=== PATIENT | female | born 1970 | race Asian ===

== ENCOUNTER → 2024-01-06 | Outpatient (CLI) | payer OTHER ==
[2024-01-06 12:06] LABS: APPEARANCE, URINE CLEAR (CLEAR); BACTERIA, URINE AUTO NEGATIVE (NEGATIVE); BILIRUBIN, URINE AUTO NEGATIVE (NEGATIVE); BLOOD, URINE BLOOD NEGATIVE (NEGATIVE); COLOR, URINE STRAW (YELLOW); GLUCOSE, URINE (UA) AUTO NEGATIVE (NEGATIVE); KETONE, URINE AUTO NEGATIVE (NEGATIVE); LEUKOCYTE ESTERASE, URINE AUTO NEGATIVE (NEGATIVE); NITRITE, URINE AUTO NEGATIVE (NEGATIVE); PROTEIN, URINE AUTO NEGATIVE (NEGATIVE); RBC, URINE AUTO 0 /HPF (0-3); SPECIFIC GRAVITY URINE AUTO 1.005 (1.002-1.035); SQUAMOUS EPITHELIAL CELL UR AU 7 /HPF (0-6); UROBILINOGEN, URINE AUTO 0.2 mg/dL (0.0-2.0); WBC, URINE AUTO 1 /HPF (0-3)
[2024-01-06 12:25] LABS: CREATININE, URINE 31.1 MG/DL; MALB URINE SIEMENS < 3.0 MG/L; MAU/CREAT RATIO 9.6 MCG/MG (0.0-30.0)
[2024-01-06 18:22] LABS: BASO % 0.4 % (0.0-1.0); EOS # 0.2 10^3/uL (0.0-0.5); EOS % 3.2 % (0.0-3.0); HEMATOCRIT 40.3 % (36.0-47.0); HEMOGLOBIN 12.6 g/dl (12.0-15.5); LYMPH # 2.7 10^3/uL (1.5-5.0); LYMPH % 37.9 % (24.0-44.0); MEAN CORPUSCULAR HEMOGLOBIN 27.5 pg (27.0-33.0); MEAN CORPUSCULAR HGB CONC 31.3 g/dl (32.0-36.5); MONO # 0.3 10^3/uL (0.0-0.8); MONO % 4.3 % (2.0-8.0); NEUTROPHILS # 3.8 10^3/uL (1.5-8.5); NEUTROPHILS % 53.8 % (36.0-66.0); PLATELET COUNT, AUTOMATED 257 10^3/uL (150-450); RED BLOOD COUNT 4.58 10^6/uL (4.00-5.40); WHITE BLOOD COUNT 7.1 10^3/uL (4.0-10.0)
[2024-01-06 18:39] LABS: ALBUMIN 3.6 G/DL (3.2-5.2); ALKALINE PHOSPHATASE 121 U/L (46-116); ALT/SGPT 11 U/L (7.0-40); AST/SGOT 11 U/L (<34); BILIRUBIN,TOTAL 0.3 MG/DL (0.3-1.2); BLOOD UREA NITROGEN 11 MG/DL (9-23); CALCIUM LEVEL 9.3 MG/DL (8.5-10.1); CARBON DIOXIDE LEVEL 25 MMOL/L (20-31); CHLORIDE LEVEL 107 MMOL/L (98-107); CHOLESTEROL LEVEL 238 MG/DL (<200); CHOLESTEROL RISK RATIO 4.57 (<5); CREATININE FOR GFR 0.72 MG/DL (0.55-1.30); GLOMERULAR FILTRATION RATE > 60.0 (>51); GLUCOSE, FASTING 92 MG/DL (60-100); LDL CHOLESTEROL 137.8 MG/DL (<100); MAGNESIUM LEVEL 1.9 MG/DL (1.8-2.4); POTASSIUM SERUM 4.8 MMOL/L (3.5-5.1); SODIUM LEVEL 139 MMOL/L (136-145); TOTAL PROTEIN 7.3 G/DL (5.7-8.2); TRIGLYCERIDES LEVEL 241 MG/DL (<150)
[2024-01-06 18:43] LABS: VITAMIN B12 LEVEL 200 PG/ML (211-911)
[2024-01-06 18:45] LABS: FOLATE 5.5 NG/ML (>5.4); THYROID STIMULATING HORMONE 4.358 uIU/ML (0.55-4.78)
[2024-01-06 18:46] LABS: TOTAL 25(OH) VITAMIN D 12.3 NG/ML (20.0-100.0)
[2024-01-06 19:09] LABS: HIV 1&2 SCREEN NEGATIVE (NEGATIVE)
[2024-01-06 19:16] LABS: HEPATITIS C VIRUS ABY INDEX < 0.02 INDEX (<0.8)
[2024-01-06 19:21] LABS: HEMOGLOBIN A1c 5.6 % (4.0-6.0)
== END ==
LOC: M RAD 10:36
PROVIDERS: ATTEND Physician Assistant
DX: I10 Essential (primary) hypertension (principal)

== ENCOUNTER 2024-03-15 19:58 | Emergency (ER) | payer OTHER ==
[~2024-03-15] VITALS: Ht 160 cm; Wt 93.1 kg
[~2024-03-15 19:58] MED LIST: CYAN500T14 PO; OLME20TA50 PO; OMEP1CAP73 PO; PROP20TA72 PO; VITA100093 PO
[2024-03-15] MEDS: ASPIRIN 81MG CHEW TABLET PO ONE (20:53)
[2024-03-15 20:57] LABS: HEMATOCRIT 36.6 % (36.0-47.0); HEMOGLOBIN 11.5 g/dl (12.0-15.5); MEAN CORPUSCULAR HEMOGLOBIN 27.3 pg (27.0-33.0); MEAN CORPUSCULAR HGB CONC 31.4 g/dl (32.0-36.5); MEAN CORPUSCULAR VOLUME 86.7 fl (80.0-96.0); PLATELET COUNT, AUTOMATED 234 10^3/uL (150-450); RED BLOOD COUNT 4.22 10^6/uL (4.00-5.40); WHITE BLOOD COUNT 9.3 10^3/uL (4.0-10.0)
[2024-03-15 21:09] LABS: INR 0.97; PARTIAL THROMBOPLASTIN TIME 32.2 SECONDS (24.8-34.2); PROTHROMBIN TIME 12.6 SECONDS (12.5-14.5)
[2024-03-15 21:13] LABS: ATYPICAL LYMPH 1 % (0-5); EOSINOPHILS 5 % (0-3); LYMPHOCYTES 52 % (16-44); MONOCYTES 2 % (0-5); NEUTROPHILS 40 % (28-66)
[2024-03-15 21:14] LABS: CK-MB VALUE MASS < 1.0 NG/ML (<3.6); PLATELET ESTIMATE NORMAL (NORMAL)
[2024-03-15 21:16] LABS: ALBUMIN 3.2 G/DL (3.2-5.2); ALKALINE PHOSPHATASE 113 U/L (46-116); ALT/SGPT 10 U/L (7.0-40); AST/SGOT 11 U/L (<34); BILIRUBIN,DIRECT < 0.1 MG/DL (<0.4); BILIRUBIN,TOTAL 0.2 MG/DL (0.3-1.2); BLOOD UREA NITROGEN 17 MG/DL (9-23); CALCIUM LEVEL 9.4 MG/DL (8.5-10.1); CARBON DIOXIDE LEVEL 25 MMOL/L (20-31); CHLORIDE LEVEL 107 MMOL/L (98-107); CREATININE FOR GFR 0.73 MG/DL (0.55-1.30); GLOMERULAR FILTRATION RATE > 60.0 (>51); GLUCOSE, FASTING 100 MG/DL (60-100); MAGNESIUM LEVEL 1.8 MG/DL (1.8-2.4); POTASSIUM SERUM 4.1 MMOL/L (3.5-5.1); SODIUM LEVEL 141 MMOL/L (136-145); TOTAL PROTEIN 7.1 G/DL (5.7-8.2)
[2024-03-15 21:18] LABS: THYROID STIMULATING HORMONE 5.803 uIU/ML (0.55-4.78)
[2024-03-15 21:22] LABS: CPK CREATINE PHOSPHOKINASE 54 U/L (34-145); MB/CK RELATIVE INDEX 1.85 (< OR =4)
[2024-03-15] MEDS ORDERED: ISOVUE-370 76% 100ML VIAL As Ordered ONE (22:02)
[2024-03-15 23:12] LABS: CK-MB VALUE MASS < 1.0 NG/ML (<3.6)
[2024-03-15 23:15] LABS: CPK CREATINE PHOSPHOKINASE 57 U/L (34-145); MB/CK RELATIVE INDEX 1.75 (< OR =4)
[2024-03-16] MEDS ORDERED: AMLO25TA PO (00:07)
[2024-03-16] MEDS ORDERED: ASPI81TA26 PO (00:07)
[2024-03-16 00:25] VITALS: BP 129/64; TEMP 98.2; O2SAT 99
== END 2024-03-16 00:39 | disposition home or self-care (01) ==
LOC: M ED 19:58
DX: R07.9 Chest pain, unspecified (principal); K21.9 Gastro-esophageal reflux disease without esophagitis; E78.5 Hyperlipidemia, unspecified; R94.31 Abnormal electrocardiogram [ECG] [EKG]; Z79.1 Long term (current) use of non-steroidal anti-inflammatories (NSAID); Z79.899 Other long term (current) drug therapy
CPT/HCPCS: 36415; 71045; 71275; 80048; 80076; 82550; 82553; 83735; 84439; 84443; 85025; 85610; 85730; 93005; 93041; 93970; 94760; 99285; Q9967

== ENCOUNTER 2024-03-28 10:36 | Day surgery (SDC) | payer OTHER ==
[~2024-03-28] VITALS: Ht 160 cm; Wt 93.3 kg
[~2024-03-28 10:36] MED LIST changes: +AMLO25TA PO; +ASPI81TA26 PO
[2024-03-28] MEDS: NS 1,000 ML IV ONE (12:03)
[2024-03-28] MEDS ORDERED: propofoL 200 MG/20 ML VIAL As Ordered ONE (13:34)
[2024-03-28] MEDS ORDERED: LIDOCAINE 2% 100MG/5ML SDV (FOR ANES.) As Ordered ONE (13:34)
[2024-03-28 14:03] VITALS: BP 112/65; TEMP 96.6; O2SAT 99
== END 2024-03-28 14:07 | disposition home or self-care (01) ==
LOC: M OPP 10:36
PROVIDERS: ATTEND Surgery
DX: Z12.11 Encounter for screening for malignant neoplasm of colon (principal); K21.9 Gastro-esophageal reflux disease without esophagitis; R00.2 Palpitations; I10 Essential (primary) hypertension; Z79.899 Other long term (current) drug therapy

== ENCOUNTER → 2024-04-11 | Outpatient (CLI) | payer OTHER ==
[2024-04-11 18:07] LABS: BASO % 0.3 % (0.0-1.0); EOS # 0.7 10^3/uL (0.0-0.5); HEMATOCRIT 37.2 % (36.0-47.0); HEMOGLOBIN 11.9 g/dl (12.0-15.5); LYMPH # 2.7 10^3/uL (1.5-5.0); LYMPH % 30.1 % (24.0-44.0); MEAN CORPUSCULAR VOLUME 84.4 fl (80.0-96.0); MONO # 0.6 10^3/uL (0.0-0.8); MONO % 6.2 % (2.0-8.0); NEUTROPHILS # 4.9 10^3/uL (1.5-8.5); PLATELET COUNT, AUTOMATED 279 10^3/uL (150-450); RED BLOOD COUNT 4.41 10^6/uL (4.00-5.40); WHITE BLOOD COUNT 8.9 10^3/uL (4.0-10.0)
[2024-04-11 18:19] LABS: HEMOGLOBIN A1c 5.8 % (4.0-6.0)
[2024-04-11 18:31] LABS: ALBUMIN 3.6 G/DL (3.2-5.2); ALKALINE PHOSPHATASE 125 U/L (46-116); ALT/SGPT 11 U/L (7.0-40); AST/SGOT 10 U/L (<34); BILIRUBIN,TOTAL 0.2 MG/DL (0.3-1.2); BLOOD UREA NITROGEN 15 MG/DL (9-23); CALCIUM LEVEL 9.6 MG/DL (8.5-10.1); CARBON DIOXIDE LEVEL 25 MMOL/L (20-31); CHLORIDE LEVEL 110 MMOL/L (98-107); CREATININE FOR GFR 0.93 MG/DL (0.55-1.30); GLOMERULAR FILTRATION RATE > 60.0 (>51); GLUCOSE, FASTING 89 MG/DL (60-100); POTASSIUM SERUM 3.9 MMOL/L (3.5-5.1); SODIUM LEVEL 141 MMOL/L (136-145); TOTAL PROTEIN 7.2 G/DL (5.7-8.2)
[2024-04-11 18:32] LABS: FREE T4 0.87 NG/DL (0.89-1.76); RHEUMATOID FACTOR QUANT 9.8 IU/ML (<14); THYROID STIMULATING HORMONE 2.951 uIU/ML (0.55-4.78)
[2024-04-11 18:33] LABS: FOLATE 7.4 NG/ML (>5.4); VITAMIN B12 LEVEL 672 PG/ML (211-911)
[2024-04-11 19:14] LABS: ERYTHROCYTE SEDIMENTATION RATE 66 mm/hr (0-30)
== END ==
LOC: M LAB 17:13
PROVIDERS: ATTEND Psychiatry & Neurology Neurology
DX: E11.9 Type 2 diabetes mellitus without complications (principal); E53.8 Deficiency of other specified B group vitamins

== ENCOUNTER → 2024-05-10 | Outpatient (CLI) | payer OTHER, SELFPAY | LOC: M SOG 07:57 | PROVIDERS: ATTEND Physician Assistant | DX: M25.512 Pain in left shoulder (principal) ==

== ENCOUNTER → 2024-05-24 | Outpatient (CLI) | payer OTHER | LOC: M SLEEP HO 12:18 | PROVIDERS: ATTEND Physician Assistant | DX: R40.0 Somnolence (principal) ==

== ENCOUNTER → 2024-08-10 | Outpatient (CLI) | payer OTHER ==
[2024-08-13 15:52] LABS: ANA SCREEN, IFA NEGATIVE (NEGATIVE)
== END ==
LOC: M LAB 13:35
PROVIDERS: ATTEND Psychiatry & Neurology Neurology
DX: R51.9 Headache, unspecified (principal)

== ENCOUNTER → 2024-10-10 | Outpatient (REF) | payer OTHER ==
[2024-10-10 19:20] LABS: C REACTIVE PROTEIN QUANTITATIV 3.1 MG/DL (<1.0)
[2024-10-10 19:23] LABS: RHEUMATOID FACTOR QUANT 9.3 IU/ML (<14)
== END ==
LOC: M LAB REF 16:44
PROVIDERS: ATTEND Physician Assistant
DX: M25.50 Pain in unspecified joint (principal)

== ENCOUNTER → 2024-12-18 | Outpatient (REF) | payer OTHER ==
[2024-12-18 16:55] LABS: BASO % 0.3 % (0.0-1.0); EOS # 0.3 10^3/uL (0.0-0.5); EOS % 2.7 % (0.0-3.0); HEMATOCRIT 36.6 % (36.0-47.0); HEMOGLOBIN 11.2 g/dl (12.0-15.5); LYMPH # 2.1 10^3/uL (1.5-5.0); MEAN CORPUSCULAR HEMOGLOBIN 26.4 pg (27.0-33.0); MEAN CORPUSCULAR HGB CONC 30.6 g/dl (32.0-36.5); MEAN CORPUSCULAR VOLUME 86.1 fl (80.0-96.0); MONO # 0.4 10^3/uL (0.0-0.8); MONO % 4.2 % (2.0-8.0); NEUTROPHILS # 7.1 10^3/uL (1.5-8.5); NEUTROPHILS % 70.3 % (36.0-66.0); PLATELET COUNT, AUTOMATED 248 10^3/uL (150-450); RED BLOOD COUNT 4.25 10^6/uL (4.00-5.40); WHITE BLOOD COUNT 10.1 10^3/uL (4.0-10.0)
[2024-12-18 16:59] LABS: ALBUMIN 3.5 G/DL (3.2-5.2); ALKALINE PHOSPHATASE 111 U/L (35-104); ALT/SGPT 13 U/L (7.0-40); AST/SGOT 11 U/L (<34); BILIRUBIN,TOTAL 0.2 MG/DL (0.3-1.2); BLOOD UREA NITROGEN 18 MG/DL (9-23); CALCIUM LEVEL 9.7 MG/DL (8.5-10.1); CARBON DIOXIDE LEVEL 25 MMOL/L (20-31); CHLORIDE LEVEL 105 MMOL/L (98-107); CREATININE FOR GFR 0.95 MG/DL (0.55-1.30); GLOMERULAR FILTRATION RATE > 60.0 (>51); GLUCOSE, FASTING 107 MG/DL (60-100); POTASSIUM SERUM 3.6 MMOL/L (3.5-5.1); SODIUM LEVEL 142 MMOL/L (136-145); TOTAL PROTEIN 7.4 G/DL (5.7-8.2)
[2024-12-18 17:27] LABS: CREATININE, URINE 73.5 MG/DL; MALB URINE SIEMENS < 3.0 MG/L
== END ==
LOC: M LAB REF 15:57
PROVIDERS: ATTEND Physician Assistant
DX: Z79.891 Long term (current) use of opiate analgesic (principal); I10 Essential (primary) hypertension

== ENCOUNTER → 2025-04-18 | Outpatient (CLI) | payer OTHER ==
[2025-04-18 17:35] LABS: BASO % 0.3 % (0.0-1.0); EOS # 0.3 10^3/uL (0.0-0.5); EOS % 4.1 % (0.0-3.0); HEMATOCRIT 33.1 % (36.0-47.0); HEMOGLOBIN 10.1 g/dl (12.0-15.5); MEAN CORPUSCULAR HGB CONC 30.5 g/dl (32.0-36.5); MEAN CORPUSCULAR VOLUME 85.1 fl (80.0-96.0); MONO # 0.5 10^3/uL (0.0-0.8); MONO % 6.3 % (2.0-8.0); NEUTROPHILS # 3.8 10^3/uL (1.5-8.5); NEUTROPHILS % 49.9 % (36.0-66.0); PLATELET COUNT, AUTOMATED 251 10^3/uL (150-450); RED BLOOD COUNT 3.89 10^6/uL (4.00-5.40); WHITE BLOOD COUNT 7.6 10^3/uL (4.0-10.0)
[2025-04-18 17:43] LABS: ERYTHROCYTE SEDIMENTATION RATE 60 mm/hr (0-30)
[2025-04-18 18:07] LABS: C REACTIVE PROTEIN QUANTITATIV 1.45 MG/DL (<1.0); CALCIUM LEVEL 9.2 MG/DL (8.5-10.1); CREATININE FOR GFR 1.12 MG/DL (0.55-1.30); GLOMERULAR FILTRATION RATE 58.4 (>51); POTASSIUM SERUM 3.6 MMOL/L (3.5-5.1)
== END ==
LOC: M LAB 16:57
PROVIDERS: ATTEND Physician Assistant
DX: R21 Rash and other nonspecific skin eruption (principal)

== ENCOUNTER → 2025-06-12 | Outpatient (CLI) | payer OTHER ==
[2025-06-12 12:38] LABS: BASO # 0.0 10^3/uL (0.0-0.2); BASO % 0.3 % (0.0-1.0); EOS # 0.2 10^3/uL (0.0-0.5); EOS % 3.1 % (0.0-3.0); LYMPH # 2.4 10^3/uL (1.5-5.0); LYMPH % 36.7 % (24.0-44.0); MONO # 0.4 10^3/uL (0.0-0.8); MONO % 6.2 % (2.0-8.0); NEUTROPHILS # 3.4 10^3/uL (1.5-8.5); NEUTROPHILS % 53.4 % (36.0-66.0); PLATELET COUNT, AUTOMATED 235 10^3/uL (150-450)
[2025-06-12 12:41] LABS: ESTIMATED AVERAGE GLUCOSE 123.0 MG/DL (60-110)
[2025-06-12 12:43] LABS: ERYTHROCYTE SEDIMENTATION RATE 71 mm/hr (0-30)
[2025-06-12 12:47] LABS: ALT/SGPT 17.0 U/L (7.0-40); AST/SGOT 18.0 U/L (<34); CALCIUM LEVEL 9.2 MG/DL (8.5-10.1); CARBON DIOXIDE LEVEL 26.0 MMOL/L (20-31); CHLORIDE LEVEL 103.0 MMOL/L (98-107); CREATININE FOR GFR 0.82 MG/DL (0.55-1.30); FREE T4 0.84 NG/DL (0.89-1.76); GLOMERULAR FILTRATION RATE 85.0 (>51); POTASSIUM SERUM 3.9 MMOL/L (3.5-5.1); SODIUM LEVEL 141.0 MMOL/L (136-145)
[2025-06-12 12:48] LABS: THYROXINE (T4) 6.4 UG/DL (4.5-10.9)
[2025-06-12 12:49] LABS: RHEUMATOID FACTOR QUANT 5.7 IU/ML (<14); VITAMIN B12 LEVEL 512.0 PG/ML (211-911)
[2025-06-12 12:51] LABS: T UPTAKE 26.0 % (22.5-37.0)
[2025-06-13 07:33] LABS: T P ELECTROPHORESIS SO 6.7 g/dL (6.1-8.1)
== END ==
LOC: M LAB 11:17
PROVIDERS: ATTEND Psychiatry & Neurology Neurology
DX: E11.9 Type 2 diabetes mellitus without complications (principal); E07.9 Disorder of thyroid, unspecified; R19.7 Diarrhea, unspecified; E53.8 Deficiency of other specified B group vitamins; R20.0 Anesthesia of skin

== ENCOUNTER 2025-07-03 19:51 | Emergency (ER) | payer OTHER ==
[~2025-07-03] VITALS: Ht 160 cm; Wt 102.0 kg
[2025-07-03] MEDS ORDERED: NEUR300C PO (23:41)
[2025-07-03] MEDS: GABAPENTIN 300 MG CAP PO ONE (23:44)
[2025-07-03 23:45] VITALS: BP 108/65; TEMP 97.5; O2SAT 99
== END 2025-07-03 23:48 | disposition home or self-care (01) ==
LOC: M ED 19:51
DX: G62.89 Other specified polyneuropathies (principal); G47.33 Obstructive sleep apnea (adult) (pediatric); Z79.1 Long term (current) use of non-steroidal anti-inflammatories (NSAID); Z79.899 Other long term (current) drug therapy

== ENCOUNTER → 2025-07-25 | Outpatient (CLI) | payer OTHER ==
[~2025-07-25] MED LIST changes: +NEUR300C PO
== END ==
LOC: M PLAIMG 09:22
PROVIDERS: ATTEND Physician Assistant
DX: M79.651 Pain in right thigh (principal)

== ENCOUNTER → 2025-08-08 | Outpatient (REF) | payer OTHER ==
[2025-08-08 15:58] LABS: CHOLESTEROL LEVEL 219.0 MG/DL (<200); CHOLESTEROL RISK RATIO 4.38 (<5); IRON (FE) 44.0 UG/DL (50-170); LDL CHOLESTEROL 105.0 MG/DL (<100); NON-HDL-C 169.0 MG/DL; PERCENT SATURATION 12.6 % (13.2-45.0); TRIGLYCERIDES LEVEL 320.0 MG/DL (<150)
[2025-08-08 16:01] LABS: TOTAL 25(OH) VITAMIN D 31.3 NG/ML (20.0-100.0)
== END ==
LOC: M LAB REF 12:16
PROVIDERS: ATTEND Physician Assistant
DX: D50.9 Iron deficiency anemia, unspecified (principal); I10 Essential (primary) hypertension; E55.9 Vitamin D deficiency, unspecified

== ENCOUNTER → 2025-08-08 | Outpatient (REF) | payer OTHER ==
[2025-08-08 12:50] LABS: APPEARANCE, URINE HAZY (CLEAR); BACTERIA, URINE AUTO 1+ (NEGATIVE); BILIRUBIN, URINE AUTO NEGATIVE (NEGATIVE); BLOOD, URINE BLOOD NEGATIVE (NEGATIVE); GLUCOSE, URINE (UA) AUTO NEGATIVE (NEGATIVE); KETONE, URINE AUTO NEGATIVE (NEGATIVE); LEUKOCYTE ESTERASE, URINE AUTO NEGATIVE (NEGATIVE); MUCUS, URINE SMALL (NEGATIVE); NITRITE, URINE AUTO NEGATIVE (NEGATIVE); PROTEIN, URINE AUTO NEGATIVE (NEGATIVE); RBC, URINE AUTO 1 /HPF (0-3); SPECIFIC GRAVITY URINE AUTO 1.011 (1.002-1.035); SQUAMOUS EPITHELIAL CELL UR AU 3 /HPF (0-6); UROBILINOGEN, URINE AUTO 0.2 mg/dL (0.0-2.0); WBC, URINE AUTO 1 /HPF (0-3)
[2025-08-08 13:57] LABS: CREATININE, URINE 71.3 MG/DL; MALB URINE SIEMENS < 3.0 MG/L
== END ==
LOC: M LAB REF 12:03
PROVIDERS: ATTEND Physician Assistant
DX: I10 Essential (primary) hypertension (principal); D50.9 Iron deficiency anemia, unspecified; E55.9 Vitamin D deficiency, unspecified

== ENCOUNTER 2025-08-12 17:52 | Emergency (ER) | payer OTHER ==
[~2025-08-12] VITALS: Ht 160 cm; Wt 102.7 kg
[2025-08-12] MEDS: KETOROLAC 60 MG/2 ML VIAL IM ONE (21:16)
[2025-08-12 21:21] VITALS: BP 138/78; TEMP 97.4; O2SAT 100
== END 2025-08-12 21:22 | disposition home or self-care (01) ==
LOC: EDBD 17:52 → M ED 17:52 → EDUNIT# 17:52 → M ED 21:22
DX: S06.0X0A Concussion without loss of consciousness, initial encounter (principal); Y92.9 Unspecified place or not applicable; Y93.9 Activity, unspecified; Y99.9 Unspecified external cause status; V49.50XA Passenger injured in collision with unspecified motor vehicles in traffic accident, initial encounter; G47.33 Obstructive sleep apnea (adult) (pediatric); K21.9 Gastro-esophageal reflux disease without esophagitis; Z79.1 Long term (current) use of non-steroidal anti-inflammatories (NSAID); Z79.899 Other long term (current) drug therapy
CPT/HCPCS: 70450; 96372; 99283; J1885

== ENCOUNTER → 2025-08-22 | Outpatient (CLI) | payer OTHER | LOC: M PLAIMG 15:32 | PROVIDERS: ATTEND Physician Assistant | DX: S49.91XA Unspecified injury of right shoulder and upper arm, initial encounter (principal); W18.30XA Fall on same level, unspecified, initial encounter; Y92.009 Unspecified place in unspecified non-institutional (private) residence as the place of occurrence of the external cause ==